=== PATIENT | female | born 1940 | race Caucasian/White ===

== ENCOUNTER 2018-02-23 08:00 | Emergency (ER) | payer MEDICARE, BC ==
[~2018-02-23 08:00] MED LIST: ALP25 PO; OMEP-218 PO
--- NOTE | 2018-02-23 08:13 | ER Report ---
History and Physical Time Seen By MD: 08:13 Hx. of Stated Complaint: c/o lower abdominal pain with associated blood per rectum onset yesterday afternoon. HPI/ROS CHIEF COMPLAINT: Lower abdominal pain and blood in the stool HISTORY OF PRESENT ILLNESS: This is a 77-year-old female. She started having some lower abdominal discomfort yesterday in the afternoon. This morning had a bowel movement with some bright red blood. After this had some loose stools. She continues to have the lower abdominal pain. Nothing really makes the pain worse or better. She does have a little bit of low back pain as well but is not sure i f this could be due to sleeping on a mattress that is too soft. She denies any fevers or chills, she states that she thought she might have had a fever last night but her felt her and said he did not think so. She denies any nausea or vomiting. No trouble with urination such as frequency or dysuria. She denies any other bleeding such as blood in the urine, bloody noses, or bruising. She does not take any blood thinners, aspirin or NSAIDs. She does have a history of GERD and takes omeprazole. She has had a colonoscopy in the past and does not recall any problems with the colonoscopy. She has had 2 prior episodes of some red blood with her stools, the last was about one year ago. REVIEW OF SYSTEMS: Constitutional: As above. Eyes: No vision changes. ENT: No sore throat. No congestion. Cardiovascular: No chest pain. No palpitations. No swelling in the legs. Respiratory: No cough. No shortness of breath. Gastrointestinal: As above. Genitourinary: As above. Musculoskeletal: No extremity pain. Skin: No rashes. No bruising. Neurological: No numbness. No weakness. Allergies: Coded Allergies: Penicillins (Verified Allergy, Severe, ANAPHYLAXIS, 02/23/18) diphenhydramine (Verified Allergy, Intermediate, ARRYTHMIA, TACCHYCARDIA, 02/23/18) Home Meds Active Scripts Promethazine Hcl (PROMETHAZINE HCL) 25 Mg Tablet, 25 MG PO Q8H PRN for NAUSEA/VOMITING, #20 TAB 0 Refills Prov:JOSEPHINE PARIKH MD 02/23/18 Hydrocodone Bit/Acetaminophen (HYDROCODON-ACETAMINOPHEN 5-325) 1 Each Tablet, 1 EACH PO Q4H PRN for PAIN, #12 TAB 0 Refills Prov:JOSEPHINE PARIKH MD 02/23/18 Levofloxacin 500 Mg Tab (LEVAQUIN 500 MG TAB) 500 Mg Tablet, 500 MG PO QDAY for 10 Days, #10 TAB 0 Refills Prov:JOSEPHINE PARIKH MD 02/23/18 Metronidazole (METRONIDAZOLE) 500 Mg Tablet, 500 MG PO TID for 10 Days, #30 TAB 0 Refills Prov:JOSEPHINE PARIKH MD 02/23/18 Reported Medications Omeprazole Magnesium (Prilosec Otc) 20 Mg Tablet.dr, 20 MG PO QDAY PRN, 0 Refills 09/02/09 Discontinued Reported Medications Alprazolam (Xanax) 0.25 Mg Tab, 0.25 MG PO QAM, 0 Refills 09/02/09 Reviewed Nurses Notes: Yes Hx Smoking: Yes (25 years total) Constitutional Vital Sign - Last 24 Hours 02/23/18 02/23/18 02/23/18 02/23/18 08:06 08:09 08:30 08:45 Temp 97.9 Pulse 88 79 Resp 18 B/P (MAP) 141/90 (107) 141/90 119/70 (86) Pulse Ox 92 90 90 O2 Delivery Room Air 02/23/18 02/23/18 02/23/18 02/23/18 09:00 09:30 09:45 09:50 Pulse 92 81 83 B/P (MAP) 116/70 (85) 129/72 (91) Pulse Ox 90 92 91 02/23/18 02/23/18 02/23/18 02/23/18 10:00 10:05 10:20 10:30 Pulse 75 77 B/P (MAP) 117/68 (84) 119/77 (91) Pulse Ox 91 91 02/23/18 02/23/18 02/23/18 10:35 10:50 10:51 Pulse 78 80 B/P (MAP) 128/80 (96) Pulse Ox 94 91 Physical Exam General Appearance: The patient is alert. No acute distress. Eyes: Pupils are equal, round. No pallor, injection or icterus. ENT: Mucous membranes are moist. Normal oral mucosa. Posterior oropharynx is normal Respiratory: Lungs are clear to auscultation. Cardiovascular: Regular rate and rhythm. No murmurs, gallops or rubs. Normal capillary refill. No edema. Gastrointestinal: Abdomen is soft, some discomfort with palpation in the lower abdomen. Nondistended. No rebound or guarding. No masses or organomegaly. Hyperactive bowel sounds. No costovertebral angle tenderness with percussion. Neurological: Alert and oriented x3. No focal neurologic deficits Skin: Warm and dry. No rashes. No bruising noted. Musculoskeletal: Extremities are nontender. Full range of motion. No tenderness in palpation of the cervical, thoracic and lumbar spine. DIFFERENTIAL DIAGNOSIS: After history and physical exam, differential diagnosis was considered for lower abdominal pain with some lower GI bleeding including but not limited to diverticulosis, tumor, AVM, other colitis, polyps, cancer. Medical Decision Making Data Points Result Diagram: 02/23/1882502/23/18825 Laboratory Hematology Test 02/23/18 08:26 02/23/18 08:28 02/23/18 09:00 Red Blood Count 4.79 M/uL (4.17-5.56) Mean Corpuscular Volume 89.2 fL (80.0-96.0) Mean Corpuscular Hemoglobin 30.3 pg (26.0-33.0) Mean Corpuscular Hemoglobin Concent 33.9 g/dL (32.0-36.0) Red Cell Distribution Width 13.1 % (11.5-14.5) Mean Platelet Volume 6.9 fL (7.2-11.1) Neutrophils (%) (Auto) 83.0 % (39.4-72.5) Lymphocytes (%) (Auto) 8.6 % (17.6-49.6) Monocytes (%) (Auto) 7.8 % (4.1-12.4) Eosinophils (%) (Auto) 0.2 % (0.4-6.7) Basophils (%) (Auto) 0.4 % (0.3-1.4) Nucleated RBC Relative Count (auto) 0.0 /100WBC Neutrophils # (Auto) 15.2 K/uL (2.0-7.4) Lymphocytes # (Auto) 1.6 K/uL (1.3-3.6) Monocytes # (Auto) 1.4 K/uL (0.3-1.0) Eosinophils # (Auto) 0.0 K/uL (0.0-0.5) Basophils # (Auto) 0.1 K/uL (0.0-0.1) Nucleated RBC Absolute Count (auto) 0.00 K/uL Prothrombin Time 13.2 seconds (12.0-14.4) Prothromb Time International Ratio 1.00 Activated Partial Thromboplast Time 32 seconds (23-35) Sodium Level 139 mmol/L (137-145) Potassium Level 3.8 mmol/L (3.5-5.0) Chloride Level 104 mmol/L (98-107) Carbon Dioxide Level 25 mmol/L (22-31) Blood Urea Nitrogen 19 mg/dl (7-18) Creatinine 1.10 mg/dl (0.52-1.04) Glomerular Filtration Rate Calc 48.3 Random Glucose 117 mg/dl (75-110) Calcium Level 9.4 mg/dl (8.4-10.2) Total Bilirubin 1.2 mg/dl (0.2-1.3) Aspartate Amino Transf (AST/SGOT) 22 U/L (0-35) Alanine Aminotransferase (ALT/SGPT) 34 U/L (0-56) Alkaline Phosphatase 63 U/L (0-126) Total Protein 7.6 g/dl (6.3-8.2) Albumin 4.3 g/dl (3.5-5.0) Urine Color Yellow Urine Clarity Turbid Urine pH 5.0 pH (4.8-9.5) Urine Specific Thorpe 1.025 Urine Protein 30 mg/dL (NEGATIVE) Urine Glucose (UA) Negative mg/dL (NEGATIVE) Urine Ketones Negative mg/dL (NEGATIVE) Urine Blood Small (NEGATIVE) Urine Nitrite Negative (NEGATIVE) Urine Bilirubin Negative (NEGATIVE) Urine Urobilinogen Negative mg/dL (0.2-1.9) Urine Leukocyte Esterase Negative (NEGATIVE) Urine RBC 2 /HPF (0-2/HPF) Urine WBC None /HPF (0-5/HPF) Urine Squamous Epithelial Cells Many /LPF (</=FEW) Urine Amorphous Crystals Moderate /HPF Urine Bacteria Negative /HPF (NONE-FEW) Urine Mucus Few /HPF (NONE-FEW) Stool Occult Blood (IFOB) Positive (NEGATIVE) Chemistry Test 02/23/18 08:26 02/23/18 08:28 02/23/18 09:00 White Blood Count 18.3 k/uL (4.5-11.0) Red Blood Count 4.79 M/uL (4.17-5.56) Hemoglobin 14.5 g/dL (12.0-16.0) Hematocrit 42.7 % (34.0-47.0) Mean Corpuscular Volume 89.2 fL (80.0-96.0) Mean Corpuscular Hemoglobin 30.3 pg (26.0-33.0) Mean Corpuscular Hemoglobin Concent 33.9 g/dL (32.0-36.0) Red Cell Distribution Width 13.1 % (11.5-14.5) Platelet Count 313 K/uL (150-450) Mean Platelet Volume 6.9 fL (7.2-11.1) Neutrophils (%) (Auto) 83.0 % (39.4-72.5) Lymphocytes (%) (Auto) 8.6 % (17.6-49.6) Monocytes (%) (Auto) 7.8 % (4.1-12.4) Eosinophils (%) (Auto) 0.2 % (0.4-6.7) Basophils (%) (Auto) 0.4 % (0.3-1.4) Nucleated RBC Relative Count (auto) 0.0 /100WBC Neutrophils # (Auto) 15.2 K/uL (2.0-7.4) Lymphocytes # (Auto) 1.6 K/uL (1.3-3.6) Monocytes # (Auto) 1.4 K/uL (0.3-1.0) Eosinophils # (Auto) 0.0 K/uL (0.0-0.5) Basophils # (Auto) 0.1 K/uL (0.0-0.1) Nucleated RBC Absolute Count (auto) 0.00 K/uL Prothrombin Time 13.2 seconds (12.0-14.4) Prothromb Time International Ratio 1.00 Activated Partial Thromboplast Time 32 seconds (23-35) Glomerular Filtration Rate Calc 48.3 Calcium Level 9.4 mg/dl (8.4-10.2) Total Bilirubin 1.2 mg/dl (0.2-1.3) Aspartate Amino Transf (AST/SGOT) 22 U/L (0-35) Alanine Aminotransferase (ALT/SGPT) 34 U/L (0-56) Alkaline Phosphatase 63 U/L (0-126) Total Protein 7.6 g/dl (6.3-8.2) Albumin 4.3 g/dl (3.5-5.0) Urine Color Yellow Urine Clarity Turbid Urine pH 5.0 pH (4.8-9.5) Urine Specific Thorpe 1.025 Urine Protein 30 mg/dL (NEGATIVE) Urine Glucose (UA) Negative mg/dL (NEGATIVE) Urine Ketones Negative mg/dL (NEGATIVE) Urine Blood Small (NEGATIVE) Urine Nitrite Negative (NEGATIVE) Urine Bilirubin Negative (NEGATIVE) Urine Urobilinogen Negative mg/dL (0.2-1.9) Urine Leukocyte Esterase Negative (NEGATIVE) Urine RBC 2 /HPF (0-2/HPF) Urine WBC None /HPF (0-5/HPF) Urine Squamous Epithelial Cells Many /LPF (</=FEW) Urine Amorphous Crystals Moderate /HPF Urine Bacteria Negative /HPF (NONE-FEW) Urine Mucus Few /HPF (NONE-FEW) Stool Occult Blood (IFOB) Positive (NEGATIVE) Coagulation Test 02/23/18 08:26 Prothrombin Time 13.2 seconds Prothromb Time International Ratio 1.00 Activated Partial Thromboplast Time 32 seconds Urinalysis Test 02/23/18 08:28 Urine Color Yellow Urine Clarity Turbid Urine pH 5.0 pH (4.8-9.5) Urine Specific Thorpe 1.025 Urine Protein 30 mg/dL (NEGATIVE) Urine Glucose (UA) Negative mg/dL (NEGATIVE) Urine Ketones Negative mg/dL (NEGATIVE) Urine Blood Small (NEGATIVE) Urine Nitrite Negative (NEGATIVE) Urine Bilirubin Negative (NEGATIVE) Urine Urobilinogen Negative mg/dL (0.2-1.9) Urine Leukocyte Esterase Negative (NEGATIVE) Urine RBC 2 /HPF (0-2/HPF) Urine WBC None /HPF (0-5/HPF) Urine Squamous Epithelial Cells Many /LPF (</=FEW) Urine Amorphous Crystals Moderate /HPF Urine Bacteria Negative /HPF (NONE-FEW) Urine Mucus Few /HPF (NONE-FEW) EKG/Imaging Imaging ABDOMEN/PELVIS WITH CONTRAST HISTORY: Lower abdominal pain. Blood in stool. TECHNIQUE: Axial images were obtained through the abdomen and pelvis with intravenous contrast . One of the following dose optimization techniques was utilized in the performance of this exam: automated exposure control; adjustment of the mA and/or kv according to patient size; or use of iterative reconstruction technique. Specific details can be referenced in the facility's radiology CT exam operational policy. CONTRAST: 75 cc of Isovue-370 COMPARISON: None. FINDINGS: Visualized lung bases: Negative. Hepatobiliary: Cholecystectomy. Common bile duct measures 8 mm and tapers towards the ampulla. Spleen: Negative. Adrenals: Negative. Pancreas: Negative. Kidneys/ureters/bladder: 1.0 x 0.6 cm simple right renal cyst. No hydronephrosis. Bowel/peritoneum/mesentery: Moderate colonic diverticulosis with focal thickening and inflammatory change at the descending-sigmoid colon junction consistent with diverticulitis. No bowel obstruction, free air or abscess. Tiny hiatal hernia. Trace amount of pelvic free fluid. Vessels: Mild arterial calcifications. Lymph nodes: Negative. Pelvic genitourinary: Hysterectomy. Bones/body wall: Negative. Other findings: None significant IMPRESSION: 1. Findings consistent with uncomplicated diverticulitis at the junction of the descending-sigmoid colon. Report Dictated By: Nitish Leiva MD at 02/23/2018 9:34 AM ED Course/Re-evaluation Clinical Indication for ER IV: Hydration, IV Access ED Course Patient had diverticulitis on CT scan. White count elevated with left shift. Urine with signs of contamination and culture was ordered. Started on Flagyl 500mg three times a day and on Levofloxacin 500mg once a day. Phenergan prescription for nausea and Lortab as needed for pain. Decision to Disposition Date: Feb 23, 2018 Decision to Disposition Time: 10:33 Depart Departure Latest Vital Signs Vital Signs Date Time Temp Pulse Resp B/P (MAP) Pulse Ox O2 Delivery O2 Flow Rate FiO2 02/23/18 10:51 128/80 (96) 02/23/18 10:50 80 91 02/23/18 08:09 97.9 18 Room Air Impression: Primary Impression: Diverticulitis Condition: Improved Disposition: HOME OR SELF-CARE Referrals: STAN CASTILLO MD (PCP) New Scripts Promethazine Hcl (PROMETHAZINE HCL) 25 Mg Tablet 25 MG PO Q8H PRN for NAUSEA/VOMITING, #20 TAB 0 Refills Prov: JOSEPHINE PARIKH MD 02/23/18 Hydrocodone Bit/Acetaminophen (HYDROCODON-ACETAMINOPHEN 5-325) 1 Each Tablet 1 EACH PO Q4H PRN for PAIN, #12 TAB 0 Refills Prov: JOSEPHINE PARIKH MD 02/23/18 Levofloxacin 500 Mg Tab (LEVAQUIN 500 MG TAB) 500 Mg Tablet 500 MG PO QDAY for 10 Days, #10 TAB 0 Refills Prov: JOSEPHINE PARIKH MD 02/23/18 Metronidazole (METRONIDAZOLE) 500 Mg Tablet 500 MG PO TID for 10 Days, #30 TAB 0 Refills Prov: JOSEPHINE PARIKH MD 02/23/18 Patient Instructions: Diverticulitis (ED) Additional Instructions: You have an infection in the colon called diverticulitis. You will be taking 2 antibiotics for the next 10 days. Take Metronidazole (Flagyl) 500mg three times a day for 10 days. Take Levofloxacin 500mg once a day for 10 days. For pain, you can use Tylenol 500mg tablets 1-2 tablets every 6 hours as needed for pain. If having more severe pain, take Lortab 5/325, one every 6 hours instead of the Tylenol. Take Zofran 4mg, one every 6 hours as needed for nausea. JOSEPHINE PARIKH MD Feb 23, 2018 08:13
[2018-02-23] MEDS ORDERED: IOPAMIDOL 76% 75 ML INFUS BTL 75 ML ONE (08:45)
[2018-02-23 08:49] LABS: PLATELET COUNT, AUTOMATED 313 K/uL (150-450)
--- NOTE | 2018-02-23 09:43 | RADIOLOGY IMAGING REPORT ---
FACILITY: [facility] PATIENT NAME: Tiana Sebastian : 1940 MR: [id number] V: [id number] EXAM DATE: ORDERING PHYSICIAN: JOSEPHINE PARIKH TECHNOLOGIST: Location: [facility] - [place] Patient: Tiana Sebastian : 1940 Visit/Account:[id number] Date of Sevice: 02/23/2018 ABDOMEN/PELVIS WITH CONTRAST HISTORY: Lower abdominal pain. Blood in stool. TECHNIQUE: Axial images were obtained through the abdomen and pelvis with intravenous contrast . One of the following dose optimization techniques was utilized in the performance of this exam: automate d exposure control; adjustment of the mA and/or kv according to patient size; or use of iterative rec onstruction technique. Specific details can be referenced in the facility's radiology CT exam operati onal policy. CONTRAST: 75 cc of Isovue-370 COMPARISON: None. FINDINGS: Visualized lung bases: Negative. Hepatobiliary: Cholecystectomy. Common bile duct measures 8 mm and tapers towards the ampulla. Spleen: Negative. Adrenals: Negative. Pancreas: Negative. Kidneys/ureters/bladder: 1.0 x 0.6 cm simple right renal cyst. No hydronephrosis. Bowel/peritoneum/mesentery: Moderate colonic diverticulosis with focal thickening and inflammatory c hange at the descending-sigmoid colon junction consistent with diverticulitis. No bowel obstruction, free air or abscess. Tiny hiatal hernia. Trace amount of pelvic free fluid. Vessels: Mild arterial calcifications. Lymph nodes: Negative. Pelvic genitourinary: Hysterectomy. Bones/body wall: Negative. Other findings: None significant IMPRESSION: 1. Findings consistent with uncomplicated diverticulitis at the junction of the descending-sigmoid co miky. Report Dictated By: Nitish Leiva MD at 02/23/2018 9:34 AM Report E-Signed By: Nitish Leiva MD at 02/23/2018 9:40 AM WSN:[id number]
[2018-02-23] MEDS ORDERED: LEVOFLOXACIN 500 MG TAB PO ONE (09:55)
[2018-02-23] MEDS ORDERED: METRONIDAZOLE 500 MG TABLET PO ONE (09:55)
[2018-02-23] MEDS ORDERED: LOR5/325 PO (10:35)
[2018-02-23] MEDS ORDERED: ONDA4TAB PO (10:35)
[2018-02-23] MEDS ORDERED: LEVO-85 PO (10:35)
[2018-02-23] MEDS ORDERED: METR-160 PO (10:35)
[2018-02-23] MEDS ORDERED: APAP/HYDROCODONE 325/5 TAB PO ONE (10:40)
[2018-02-23] MEDS ORDERED: PROM-110 PO (10:41)
[2018-02-23 10:51] VITALS: BP 128/80
== END 2018-02-23 11:00 | disposition home or self-care (01) ==
LOC: ER 08:23
DX: K57.92 Diverticulitis of intestine, part unspecified, without perforation or abscess without bleeding (principal)
CPT/HCPCS: 74177; 81001; 82274; 85025; 85610; 85730; 87088; 99284; A9270; Q9967; 82040; 82247; 82310; 82374; 82435; 82565; 82947; 84075; 84132; 84155; 84295; 84450; 84460; 84520

== ENCOUNTER → 2018-06-14 | Outpatient (CLI) | payer MEDICARE, BC ==
[~2018-06-14] MED LIST changes: +LEVO-85 PO; +LOR5/325 PO; +METR500T15 PO; +ONDA4TAB PO; +PROM-110 PO
[2018-06-14 10:04] LABS: PLATELET COUNT, AUTOMATED 306 K/uL (150-450)
== END ==
LOC: LAB 09:36
PROVIDERS: ATTEND Internal Medicine
DX: R10.9 Unspecified abdominal pain (principal)
CPT/HCPCS: 36415; 82040; 82247; 82310; 82374; 82435; 82565; 82947; 84075; 84132; 84155; 84295; 84450; 84460; 84520; 85025; 85651